=== PATIENT | female | born 1975 | race Hispanic/Latino ===

== ENCOUNTER 2021-11-03 05:30 | Day surgery (SDC) | payer BC ==
[2021-11-02 15:51] LABS: BASOPHILS % (AUTO) 0.7 % (0.0-5.0); EOSINOPHILS % (AUTO) 1.6 % (0.0-8.0); HEMATOCRIT 34.3 % (36-48); LYMPHOCYTES % (AUTO) 25.3 % (21.0-51.0); MEAN CORPUSCULAR HEMOGLOBIN 22.6 pg (27.0-33.0); MEAN CORPUSCULAR HGB CONC 30.3 g/dL (32.0-36.0); MEAN CORPUSCULAR VOLUME 74.6 fL (79-99); MONOCYTES % (AUTO) 7.5 % (3.0-13.0); NEUTROPHILS % (AUTO) 64.5 % (40.0-77.0); PLATELET COUNT (AUTO) 434 K/uL (130-400); RED CELL DISTRIBUTION WIDTH 16.5 % (11.0-15.5); WHITE BLOOD COUNT (AUTO) 9.8 K/uL (4.8-10.8)
[2021-11-02 15:58] VITALS: BP 221/115
[2021-11-02 15:59] LABS: APPEARANCE,URINE CLOUDY (CLEAR); BILIRUBIN,URINE SMALL (NEGATIVE); COLOR,URINE ORANGE (YELLOW); GLUCOSE, URINE (UA) NEGATIVE (NEGATIVE); KETONES,URINE NEGATIVE (NEGATIVE); LEUKOCYTE ESTERASE ,URINE TRACE (NEGATIVE); NITRATE,URINE NEGATIVE (NEGATIVE); OCCULT BLOOD,URINE LARGE (NEGATIVE); PH,URINE 5.5 (5.0-8.0); PROTEIN,URINE 30 mg/dL (NEGATIVE); UROBILINOGEN,URINE 0.2 mg/dL (0.2-1.0)
[2021-11-02 16:04] LABS: INR 0.93 (0.85-1.15); PROTHROMBIN TIME 10.2 SEC (9.6-11.6)
[2021-11-02 16:06] LABS: PARTIAL THROMBOPLASTIN TIME 26.8 SEC (26.3-35.5)
[2021-11-02 16:16] LABS: RBC,URINE TNTC /HPF (0-1)
[2021-11-02 16:17] LABS: BACTERIA,URINE Many /HPF (None Seen); SQUAMOUS EPITHELIAL CELL,UR Few /HPF (0-2)
[2021-11-02 16:18] LABS: HYALINE CASTS, URINE 0-1 /LPF (0-1 /LPF)
[~2021-11-03] VITALS: Ht 154.9 cm; Wt 89.4 kg
[2021-11-03] VITALS (17 sets, daily range): BP systolic 103–178; BP diastolic 49–95
[2021-11-03] MEDS ORDERED: LACTATED RINGERS 1000ML 1,000 ML IV SCH (06:00)
[2021-11-03] MEDS ORDERED: FAMOTIDINE 20MG VIAL IV ONE (06:54)
[2021-11-03] MEDS ORDERED: PROPOFOL 10 MG/ML 20ML VIAL IV ONE (07:04)
[2021-11-03] MEDS ORDERED: MIDAZOLAM HCL 1 MG/ML 2ML VIAL ONE (07:05)
[2021-11-03] MEDS ORDERED: FENTANYL CITRATE PF 50 MCG/1 ML 2ML VIAL ONE (07:05)
[2021-11-03] MEDS ORDERED: ONDANSETRON 4MG INJ ONE (07:06)
[2021-11-03] MEDS ORDERED: STRONG IODINE SOLN 14ML BOTTLE ONE (07:12)
[2021-11-03] MEDS ORDERED: ACETIC ACID 0.25% 1,000 ML IRRIG.SOLN ONE (07:24)
[2021-11-03] MEDS ORDERED: DEXMEDETOMIDINE HCL 200 MCG/2 ML VIAL IV ONE (07:25)
[2021-11-03] MEDS ORDERED: CLON1PAT TD (10:16)
== END 2021-11-03 11:15 | disposition home or self-care (01) ==
LOC: DAH 05:30
PROVIDERS: ATTEND Obstetrics & Gynecology
DX: N84.0 Polyp of corpus uteri (principal); N84.1 Polyp of cervix uteri; D64.9 Anemia, unspecified; I10 Essential (primary) hypertension; E66.01 Morbid (severe) obesity due to excess calories; Z79.01 Long term (current) use of anticoagulants; Z79.899 Other long term (current) drug therapy; Z90.49 Acquired absence of other specified parts of digestive tract; Z98.890 Other specified postprocedural states; Z68.38 Body mass index [BMI] 38.0-38.9, adult
CPT/HCPCS: 84703; 85025; 85610; 85730; 86850; 86900; 86901; 87088; 87426; 81001; 36415; 58120; A6260; J7120; J3490 ×2; J3010; J2250; J2704; J2405; A4315; A4215; A4223; A4222; A4221

== ENCOUNTER 2022-01-06 13:10 | Emergency (ER) | payer BC ==
[~2022-01-06] VITALS: Ht 154.9 cm; Wt 89.4 kg
[~2022-01-06 13:10] MED LIST: CLON1PAT TD
[2022-01-06 14:13] LABS: BASOPHILS % (AUTO) 0.4 % (0.0-5.0); EOSINOPHILS % (AUTO) 1.1 % (0.0-8.0); HEMATOCRIT 34.6 % (36-48); LYMPHOCYTES % (AUTO) 25.7 % (21.0-51.0); MEAN CORPUSCULAR HGB CONC 31.8 g/dL (32.0-36.0); MEAN CORPUSCULAR VOLUME 75.4 fL (79-99); MONOCYTES % (AUTO) 6.3 % (3.0-13.0); NEUTROPHILS % (AUTO) 66.1 % (40.0-77.0); PLATELET COUNT (AUTO) 370 K/uL (130-400); RED BLOOD CELL COUNT(AUTO) 4.59 MIL/uL (4.00-5.50); RED CELL DISTRIBUTION WIDTH 18.5 % (11.0-15.5); WHITE BLOOD COUNT (AUTO) 9.7 K/uL (4.8-10.8)
[2022-01-06 14:20] LABS: CREATININE 0.7 mg/dL (0.5-1.5); POTASSIUM 3.8 mmol/L (3.5-5.1)
[2022-01-06 14:25] LABS: ALBUMIN 3.9 g/dL (3.5-5.0); TOTAL PROTEIN, SERUM 8.1 g/dL (6.0-8.3)
[2022-01-06] MEDS ORDERED: NIFEDIPINE 10 MG CAP PO SCH (14:30)
[2022-01-06] MEDS ORDERED: LOSA1TAB42 PO (15:48)
[2022-01-06 16:00] VITALS: BP 164/76
== END 2022-01-06 16:01 | disposition home or self-care (01) ==
LOC: EDH 13:10
DX: I10 Essential (primary) hypertension (principal); R07.89 Other chest pain; E66.9 Obesity, unspecified; Z68.37 Body mass index [BMI] 37.0-37.9, adult
CPT/HCPCS: 36415; 71045; 80053; 84484; 85025; 93005

== ENCOUNTER → 2023-09-27 | Outpatient (CLI) | payer BC ==
[~2023-09-27] MED LIST changes: +LOSA1TAB42 PO
== END | disposition home or self-care (01) ==
LOC: RAH 13:07
PROVIDERS: ATTEND Family Medicine
DX: M17.12 Unilateral primary osteoarthritis, left knee (principal); M25.562 Pain in left knee
CPT/HCPCS: 73721

== ENCOUNTER 2025-02-16 06:27 | Emergency (ER) | payer BC ==
[~2025-02-16] VITALS: Ht 152.4 cm; Wt 97.5 kg
--- NOTE | 2025-02-16 06:31 | NUR ---
UA CUP PROVIDED
--- NOTE | 2025-02-16 06:36 | NUR ---
CALLED FOR ROOM
[2025-02-16 07:02] LABS: APPEARANCE,URINE CLOUDY (CLEAR); GLUCOSE, URINE (UA) NEGATIVE (NEGATIVE); LEUKOCYTE ESTERASE ,URINE 500 Leu/uL (NEGATIVE); NITRATE,URINE NEGATIVE (NEGATIVE); OCCULT BLOOD,URINE LARGE (NEGATIVE)
[2025-02-16 07:06] LABS: ADD UA MICROSCOPIC YES
[2025-02-16 07:13] LABS: NON-SQUAMOUS EPITHELIAL CELL 1 /HPF (0-2); WBC CLUMP MANY /HPF (0-1)
[2025-02-16] MEDS ORDERED: PHEN-847 PO (07:45)
[2025-02-16] MEDS ORDERED: CEPH500B PO (07:45)
--- NOTE | 2025-02-16 07:46 | ERN ---
General Chief Complaint: Urinary Frequency Stated Complaint: URINARY FREQUENCY Time Seen by MD: 07:36 Source: patient History of Present Illness Initial Comments Patient is a 49-year-old female coming in complaining of painful urination. Per patient this has been ongoing for a couple of days she is here for further evaluation. No fever no chills. Allergies: Coded Allergies: No Known Drug Allergies (Verified Allergy, Unknown, 11/02/21) Home Meds Active Scripts Losartan/Hydrochlorothiazide (Losartan-Hctz 100-12.5 mg Tab) 1 Each Tablet, 1 TAB PO DAILY for 30 Days, #30 TAB 0 Refills Prov:JOSELUIS DAVIS 01/06/22 Reported Medications Clonidine (Catapres-Tts 1) 0.1 Mg/ 24 Hr Patch, 0.1 MG TD AD PRN for IF SBP GREATER THAN 170, ADH.PATCH 11/03/21 Past Medical History Past Medical History: Hypertension, Other Medical History Other: Obese Past Surgical History: Cholecystectomy Surgical History Other: SPINE Family History Family History: Negative Social History Social History: Lives with family Female( History) LMP: Feb 04, 2025 ROS Dictation CONSTITUTIONAL: No chills, no fever, no weakness, no diaphoresis, no malaise. HEAD/FACE: No signs of trauma. EENT: No eye pain, no blurred vision, no tearing, no double vision, no ear pain, no ear discharge, no nose pain, no nasal congestion, no throat pain, no throat swelling, no mouth pain. RESPIRATORY: No cough, no orthopnea, no SOB, no stridor, no wheezing. CARDIOVASCULAR: No chest pain, no edema, no palpitations, no syncope. GASTROINTESTINAL/ABDOMINAL: No abdominal pain, no constipation, no diarrhea, no nausea, no vomiting. GENITOURINARY: No abnormal discharge, dysuria, frequent urination, no hematuria. No complaints of pain in the genitals. MUSCULOSKELETAL: No back pain, no gout, no joint pain, no joint swelling, no muscle pain, no muscle stiffness, no neck pain. INTEGUMENTARY: No change in color, no change in hair/nails, no dryness, no lesion, no lumps, no rash. NEUROLOGICAL/PSYCH: No anxiety, not depressed, no emotional problem, no headache, no numbness, no pre-existing deficit, no history of seizures, no tremors, no weakness. HEMATOLOGIC/LYMPHATIC: Not anemic, no history of blood clots, no apparent bleeding, no bruising, glands not swollen. All Systems Negative, Except as Noted. Physical Exam Physical Exam Dictation VITAL SIGNS: Reviewed. GENERAL APPEARANCE: Alert, oriented x3, no acute distress, obese. HEAD AND FACE: Non-traumatic. EYES: PERRL, pink conjunctivas, eyelid no trauma, anterior chamber clear. EARS: Pinnas intact and no signs of trauma or erythema. Ear canals clear and no discharge. TMs no erythema. NOSE: No discharge, no bleeding. OROPHARYNX: Mouth normal, teeth no caries, tongue pink. Pharynx clear, no erythema. Tonsils no exudates, no abscesses noted. Mucous membrane moist. NECK: Supple, non-tender, no thyromegaly, no masses, no JVD, no bruits. BREAST: Deferred. CHEST: No tenderness, no crepitus, no paradoxical movement, no retractions. LUNGS: Clear, well-ventilated, symmetric, no rales, no wheezing, no rhonchi, no stridor, good breath sounds bilaterally. HEART: Regular rate, regular rhythm, no murmur, no gallops. VASCULAR: No peripheral edema. ABDOMEN: Soft, positive bowel sounds, nondistended, no guarding, nontender, no rebound, no masses no hepatomegaly, no splenomegaly, no Cifuentes's sign, no hernias. RECTAL: Deferred. GENITAL: Deferred. NEUROLOGICAL: Normal speech, gross motor function intact, gross sensory function intact. MUSCULOSKELETAL: Neck nontender, full range of motion, back nontender, full range of motion. EXTREMITIES: Nontender, full range of motion. SKIN: Color pink, dry, no turgor, no rash, no lacerations, no abrasions, no contusions. LYMPHATICS: Deferred. Results Laboratory and Microbiology Lab and Micro Result Laboratory Tests Test 02/16/25 06:51 Urine Color LIGHT-YELLOW (YELLOW) Urine Appearance CLOUDY (CLEAR) H Urine pH 6.0 (5.0-8.0) Urine Specific [place] 1.006 (1.001-1.031) Urine Protein 30 mg/dL (NEGATIVE) H Urine Glucose (UA) NEGATIVE mg/dL (NEGATIVE) Urine Ketones NEGATIVE mg/dL (NEGATIVE) Urine Occult Blood LARGE (NEGATIVE) H Urine Nitrate NEGATIVE (NEGATIVE) Urine Bilirubin NEGATIVE mg/dL (NEGATIVE) Urine Urobilinogen 0.2 mg/dL (0.2-1.0) Urine Leukocyte Esterase 500 Lilia/uL (NEGATIVE) H Urine RBC 6-10 /HPF (0-1) H Urine WBC TNTC /HPF (0-1) H Urine WBC Clumps (Auto) MANY /HPF (0-1) Urine Non-Squamous Epithelial Cells 1 /HPF (0-2) Urine Bacteria RARE /HPF (None Seen) Labs Reviewed?: Yes MDM MDM: Differential diagnosis: UTI, dysuria, Rationale: Tests considered and ordered secondary to shared decision making include: Previous outside records reviewed: Old ER visits. Risk of complication and/or morbidity or mortality of patient management: None Medications-Per medication reconciliation Need for hospitalization: Patient does not meet criteria for hospitalization. Need for emergency major/minor surgery: No Patient is a 49-year-old female coming in complaining of urinary discomfort. Laboratory workup positive for urinary tract infection. Patient will be discharged in stable condition with a diagnosis of UTI. Medication will be provided for symptomatic relief. ED Course Orders Procedure Category Date Status Time Urinalysis Profile LAB 02/16/25 Complete 06:29 Hydralazine 20mg Inj PHA 02/16/25 Complete (Apresoline 20mg In 07:00 Culture Urine [id number] 02/16/25 In Process 07:07 Current Medications Medications (Trade) Dose Ordered Sig/Kodi Route PRN Reason Start Time Stop Time Status Last Admin Dose Admin Hydralazine HCl (APRESOLine 20MG INJ) 10 mg ONCE ONCE IV 02/16/25 07:00 02/16/25 07:01 DC Vital Signs Date Time Temp Pulse Resp B/P (MAP) Pulse Ox O2 Delivery O2 Flow Rate FiO2 02/16/25 07:20 78 18 162/96 98 Room Air* 0 21 02/16/25 06:29 97.5 79 20 191/108 98 Room Air DX & DISP Disposition: Discharge Departure Impression: Primary Impression: UTI (urinary tract infection) Condition: Stable Scripts Phenazopyridine HCl (Pyridium) 200 Mg Tab 1 TAB PO TID for urinary discomfort for 2 Days, #6 TAB 0 Refills after food Prov: AMEE CASTILLO MD 02/16/25 Cephalexin Monohydrate (Keflex) 500 Mg Cap 1 CAP PO BID for 10 Days, #20 CAP 0 Refills Prov: AMEE CASTILLO MD 02/16/25 Additional Instructions: FOLLOW-UP WITH PRIMARY CARE PROVIDER IN 1 TO 2 DAYS. TAKE MEDICATIONS DIRECTED HERE IN THE EMERGENCY ROOM. OKAY TO CONTINUE HOME MEDICATIONS UNLESS OTHERWISE DISCUSSED DURING YOUR VISIT IN THE EMERGENCY ROOM TODAY. RETURN TO YOUR NEAREST EMERGENCY ROOM IF SYMPTOMS WORSEN OR IF THERE IS NO IMPROVEMENT. CALL 911 IF YOU NEED IMMEDIATE ASSISTANCE. TAKE TYLENOL [id number] NEEDED AND IF NO CONTRAINDICATIONS ARE PRESENT. INCREASE ORAL HYDRATION. A WOUND CULTURE OR URINE CULTURE WAS ORDERED HERE IN THE EMERGENCY ROOM DEPARTMENT PLEASE FOLLOW-UP WITH PRIMARY CARE PROVIDER AND ADVISE THEM TO GET REPORTS FROM OUR FACILITY. IF YOU HAD ANY KASSANDRA WRAP/SPLINTS THAT WERE APPLIED HERE, PLEASE DO NOT REMOVE THEM UNTIL YOU SEE YOUR PRIMARY CARE OR SPECIALTY. REFERRALS: Referrals: CITLALI RAHMAN DO (PCP) Time of Disposition: 07:45 AMEE CASTILLO MD Feb 16, 2025 07:46
[2025-02-16] MEDS: PHENAZOpyridine HCL 200 MG TAB 200 MG TABLET PO ONE (08:09)
[2025-02-16 08:10] VITALS: BP 148/87; PULSE 78; RESP 18; TEMP 97.5; O2SAT 98
== END 2025-02-16 08:13 | disposition home or self-care (01) ==
LOC: EDH 06:27
DX: N39.0 Urinary tract infection, site not specified (principal); E66.9 Obesity, unspecified; I10 Essential (primary) hypertension; Z79.899 Other long term (current) drug therapy; Z90.49 Acquired absence of other specified parts of digestive tract
CPT/HCPCS: 81001; 87086; 87186; 99283; J0360